=== PATIENT | male | born 1940 | race Hispanic/Latino ===

== ENCOUNTER → 2016-04-24 | Outpatient (CLI) | payer OTHER, MEDICARE ==
[2016-04-24 10:22] LABS: HEMATOCRIT 42.4 % (42.0-52.0); HEMOGLOBIN 14.2 g/dL (14.0-18.0); MEAN CORPUSCULAR HEMOGLOBIN 29.6 PG (27-31); MEAN CORPUSCULAR HGB CONC 33.5 g/dL (33-37); MEAN PLATELET VOLUME 9.8 FL (7.4-12.2); RED BLOOD COUNT 4.8 10^6/uL (4.70-6.10); WHITE BLOOD COUNT 8.69 10^3/uL (4.8-10.8)
[2016-04-24 10:44] LABS: BLOOD UREA NITROGEN 54 mg/dL (7-22); BUN/CREATININE RATIO 15.42 (6-20); CALCIUM 9.1 mg/dL (8.7-10.7); CHLORIDE 101 meq/L (98-112); CREATININE 3.5 mg/dL (0.70-1.50); GLUCOSE 216 mg/dL (78-110); PHOSPHORUS 4.4 mg/dl (2.4-4.3); POTASSIUM 4.2 meq/L (3.8-5.2); SODIUM 143 meq/L (135-145)
== END ==
LOC: LAB 09:59
PROVIDERS: ATTEND Physician Assistant Medical
DX: N18.5 Chronic kidney disease, stage 5 (principal); D63.1 Anemia in chronic kidney disease
CPT/HCPCS: 36415; 80069; 85027

== ENCOUNTER → 2016-05-23 | Outpatient (CLI) | payer OTHER, MEDICARE ==
[2016-05-23 09:41] LABS: HEMATOCRIT 40.2 % (42.0-52.0); HEMOGLOBIN 14.1 g/dL (14.0-18.0); MEAN CORPUSCULAR HEMOGLOBIN 30.2 PG (27-31); MEAN CORPUSCULAR HGB CONC 35.1 g/dL (33-37); RED BLOOD COUNT 4.67 10^6/uL (4.70-6.10); WHITE BLOOD COUNT 7.89 10^3/uL (4.8-10.8)
[2016-05-23 10:03] LABS: BLOOD UREA NITROGEN 74 mg/dL (7-22); CALCIUM 8.9 mg/dL (8.7-10.7); CHLORIDE 96 meq/L (98-112); CREATININE 4.3 mg/dL (0.70-1.50); GLUCOSE 249 mg/dL (78-110); PHOSPHORUS 4.1 mg/dl (2.4-4.3); POTASSIUM 3.2 meq/L (3.8-5.2); SODIUM 138 meq/L (135-145)
== END ==
LOC: LAB 09:15
PROVIDERS: ATTEND Internal Medicine Nephrology
DX: N18.5 Chronic kidney disease, stage 5 (principal); D63.1 Anemia in chronic kidney disease
CPT/HCPCS: 36415; 80069; 85027

== ENCOUNTER → 2016-05-31 | Outpatient (CLI) | payer OTHER, MEDICARE ==
[2016-05-31 11:19] LABS: BLOOD UREA NITROGEN 76 mg/dL (7-22); BUN/CREATININE RATIO 15.83 (6-20); CALCIUM 9.3 mg/dL (8.7-10.7); CHLORIDE 95 meq/L (98-112); CREATININE 4.8 mg/dL (0.70-1.50); GLUCOSE 142 mg/dL (78-110); PHOSPHORUS 5.5 mg/dl (2.4-4.3); POTASSIUM 3.7 meq/L (3.8-5.2); SODIUM 140 meq/L (135-145)
== END ==
LOC: LAB 10:38
PROVIDERS: ATTEND Internal Medicine Nephrology
DX: N18.4 Chronic kidney disease, stage 4 (severe) (principal)
CPT/HCPCS: 36415; 80069

== ENCOUNTER → 2016-06-07 | Outpatient (CLI) | payer OTHER, MEDICARE ==
[2016-06-07 10:11] LABS: HEMATOCRIT 43.8 % (42.0-52.0); HEMOGLOBIN 15.1 g/dL (14.0-18.0); MEAN CORPUSCULAR HEMOGLOBIN 29.4 PG (27-31); MEAN CORPUSCULAR HGB CONC 34.5 g/dL (33-37); RDW COEFFICIENT OF VARIATION 12.9 % (11.5-14.5); RED BLOOD COUNT 5.13 10^6/uL (4.70-6.10); WHITE BLOOD COUNT 8.47 10^3/uL (4.8-10.8)
[2016-06-07 10:23] LABS: BLOOD UREA NITROGEN 99 mg/dL (7-22); BUN/CREATININE RATIO 21.52 (6-20); CALCIUM 9.2 mg/dL (8.7-10.7); CHLORIDE 91 meq/L (98-112); CREATININE 4.6 mg/dL (0.70-1.50); GLUCOSE 251 mg/dL (78-110); PHOSPHORUS 5.7 mg/dl (2.4-4.3); POTASSIUM 3.4 meq/L (3.8-5.2); SODIUM 136 meq/L (135-145)
[2016-06-07 10:56] LABS: INTACT PARATHYROID HORMONE 247.5 PG/ML (7.5-53.5)
[2016-06-07 11:24] LABS: PERCENT IRON SATURATION 26.24 % (14-50)
== END ==
LOC: LAB 09:56
PROVIDERS: ATTEND Internal Medicine Nephrology
DX: I12.9 Hypertensive chronic kidney disease with stage 1 through stage 4 chronic kidney disease, or unspecified chronic kidney disease (principal); N18.4 Chronic kidney disease, stage 4 (severe); D63.1 Anemia in chronic kidney disease; N25.81 Secondary hyperparathyroidism of renal origin
CPT/HCPCS: 36415; 80069; 82306; 82565; 83540; 83550; 83970; 84156; 85027

== ENCOUNTER → 2016-06-12 | Outpatient (CLI) | payer OTHER, MEDICARE ==
[2016-06-12 11:07] LABS: BLOOD UREA NITROGEN 94 mg/dL (7-22); BUN/CREATININE RATIO 21.86 (6-20); CALCIUM 9.1 mg/dL (8.7-10.7); CHLORIDE 92 meq/L (98-112); CREATININE 4.3 mg/dL (0.70-1.50); GLUCOSE 244 mg/dL (78-110); PHOSPHORUS 4.6 mg/dl (2.4-4.3); POTASSIUM 3.4 meq/L (3.8-5.2); SODIUM 136 meq/L (135-145)
== END ==
LOC: LAB 09:57
PROVIDERS: ATTEND Internal Medicine Nephrology
DX: C61 Malignant neoplasm of prostate (principal); N18.4 Chronic kidney disease, stage 4 (severe)
CPT/HCPCS: 36415; 80069; 84153

== ENCOUNTER → 2016-06-14 | Outpatient (CLI) | payer OTHER, MEDICARE | LOC: MMPC 09:00 | DX: N18.3 Chronic kidney disease, stage 3 (moderate) (principal); E11.9 Type 2 diabetes mellitus without complications; I10 Essential (primary) hypertension; C61 Malignant neoplasm of prostate; E11.621 Type 2 diabetes mellitus with foot ulcer; Z79.4 Long term (current) use of insulin | CPT/HCPCS: 99213; G0463 ==

== ENCOUNTER → 2016-06-26 | Outpatient (CLI) | payer OTHER, MEDICARE ==
[2016-06-26 12:42] LABS: HEMOGLOBIN A1C 7.36 % (4.2-6.0)
[2016-06-26 12:52] LABS: BLOOD UREA NITROGEN 55 mg/dL (7-22); BUN/CREATININE RATIO 16.17 (6-20); CALCIUM 9.5 mg/dL (8.7-10.7); PHOSPHORUS 4.9 mg/dl (2.4-4.3); SERUM ALBUMIN 4.5 g/dL (3.5-4.8)
== END ==
LOC: LAB 12:04
PROVIDERS: ATTEND Internal Medicine Nephrology
DX: E11.9 Type 2 diabetes mellitus without complications (principal); Z79.4 Long term (current) use of insulin; N18.4 Chronic kidney disease, stage 4 (severe)
CPT/HCPCS: 36415; 80069; 83036

== ENCOUNTER → 2016-07-10 | Outpatient (CLI) | payer OTHER, MEDICARE ==
--- NOTE | 2016-07-10 11:22 | DI ---
PA /LATERAL CHEST X-RAY, 07/10/2016 10:46 AM : Clinical History: Cough. Previous Exam: 05/10/2015. On both views the patient took a very shallow inspiration. There is no acute soft tissue or bony abno rmality. Multiple old right-sided rib fractures are present. Heart size is probably normal for the sh allow inspiratory effort. Lungs are clear. Mediastinal structures are normal. There are no pulmonary nodules. Reading: Normal chest x-ray for this shallow inspiratory effort.
== END ==
LOC: MOB RAD 10:47
PROVIDERS: ATTEND Physician Assistant
DX: R05 Cough (principal)
CPT/HCPCS: 71020

== ENCOUNTER → 2016-08-24 | Outpatient (CLI) | payer OTHER, MEDICARE ==
[2016-08-24 12:11] LABS: BLOOD UREA NITROGEN 61 mg/dL (7-22); BUN/CREATININE RATIO 15.64 (6-20); CALCIUM 9.9 mg/dL (8.7-10.7)
== END ==
LOC: MOB LAB 09:59
DX: E11.9 Type 2 diabetes mellitus without complications (principal); Z79.4 Long term (current) use of insulin; E11.21 Type 2 diabetes mellitus with diabetic nephropathy; I12.9 Hypertensive chronic kidney disease with stage 1 through stage 4 chronic kidney disease, or unspecified chronic kidney disease; N18.3 Chronic kidney disease, stage 3 (moderate); F17.200 Nicotine dependence, unspecified, uncomplicated
CPT/HCPCS: 36415; 80048; 84100

== ENCOUNTER 2016-10-11 13:32 | Emergency (ER) | payer OTHER, MEDICARE ==
[2016-10-11] MEDS ORDERED: Sodium Chloride 0.9% 1,000 ML PRIMARY IV ONE (14:02)
[2016-10-11] MEDS ORDERED: ONDANSETRON 4 MG/2 ML VIAL IVP ONE (14:02)
[2016-10-11] MEDS ORDERED: KETOROLAC 15 MG/1 ML VIAL IVP ONE (14:02)
--- NOTE | 2016-10-11 14:10 | PDOC ---
Gen Adult / Medical Screen HPI - General Chief Complaint: Dyspnea Stated Complaint: ACUTE ONSET SHAKY CHILLS/SOB Date Seen by Provider: 10/11/16 Time Seen by Provider: 14:05 Source: POSITIVE: Patient, Spouse Exam Limitations: POSITIVE: No limitations Nurse's Notes Reviewed & Considered: Yes - Indicators Temperature Between 95 and 101 Degrees: Yes Respirations Between 12 and 20: Yes Blood Pressure Between 100-165 (sys) and 60-100 (shanks): Yes Pulse Range Between 60-105 (100 for age > 60 years): Yes Severe Pain (Greater than 5/10 Reported): No Chest or Abdominal Pain: No Inability to Walk: No Pt Reports Active High Risk Cond. (TB/Hepatitis/HIV/Chemo): No Abnormal Mental Status: No - History of Present Illness Initial Comments: This is a pleasant 76-year-old male who comes in with a chief complaint of chills, rigors, and low oxygen saturations. This patient was in his normal state of health this morning, with blood sugars around 215. He played golf trying to [address] the way home began to shake almost uncontrollably. When he arrived home Carla his stated that he could barely ambulate with difficulty standing. EMS arrived and found his oxygen saturations to be 84% on room air, it required 6 L to bring his oxygen saturations up above 90%. He has been seen a senior design engineering specialist in [facility] for diabetic wound ulcers on his left foot. Today that left foot has lymphangina present on the dorsum of his foot, increased swelling, and increased erythema. He has been running low- grade fevers at home. Body Location Affected: REPORTS: Lower Extremity (L) Timing: REPORTS: Gradual Duration: 1-3 hours Similar Symptoms Previously: No Recent Care Received: REPORTS: Treated by Any Prior Injuries Related to Current Complaint?: No - Patient Home Medications Home Medications: Home Medications Ventolin Hfa 2 puff INH Q4-6H 08/04/11 Blood-Glucose Meter [One Touch Ultra 2] 1 each MC QD #1 unit 10/11/12 Lancets [One Touch Lancets] 1 each MC QID #100 each 10/11/12 Aspirin [Low Dose Aspirin Ec] 1 tab PO DAILY tab 07/22/13 Cholecalciferol (Vitamin D3) [Vitamin D3] 1 cap PO QD #30 cap 09/07/15 Metoprolol Succinate 1 tab PO DAILY #90 tab 01/19/16 Insulin Aspart [Novolog Flexpen] 100 unit SUBCUT AC #5 unit 04/12/16 Insulin Glargine SoloStar Inj [Lantus Solostar Inj] 28 unit SQ QHS #1 box Tiotropium [place] [Spiriva] 1 cap IH QD #90 cap 06/14/16 Calcitriol [Rocaltrol] 1 cap PO QD #45 cap 06/19/16 Blood Sugar Diagnostic [Car Throttleuch Ultra Test Strips] 1 each IN QID #100 strip 02/16 Hydrocodone Bit/Acetaminophen [Retsof 5-325 Tablet] 1 tab PO Q6H PRN #90 tab [place], Insulin Disposable [Bd Ultra-Fine Pen Needle] 1 each MC QID #100 unit 09/05/16 Amlodipine Besylate [Norvasc] 10 mg PO DAILY 10/11/16 Atorvastatin Calcium [Lipitor] 10 mg PO DAILY 10/11/16 Furosemide [Lasix] 40 mg PO .AM.NOON 10/11/16 Hydralazine HCl 25 mg PO DAILY 10/11/16 [place]-3 Fatty Acids/Fish Oil [Fish Oil 1,000 Mg Capsule] 1 each PO DAILY - Patient Allergies Allergies/Adverse Reactions: Allergies Allergy/AdvReac Type Severity Reaction Status Date / Time No Known Drug Allergies Allergy NOT Verified 10/11/16 13:48 APPLICABLE Past Medical History - heen HEENT History: Cataracts Additional HEENT History: REMOVED Cardiovascular History: Hypertension, Hyperlipidemia Additional Cardiovasular History: CARDIAC STENTS, ON BLOOD THINNER Respiratory History: Other (please comment) Additional Respiratory History: FIBROSIS OF THE LUNG, PNEUMOCONIOSIS(THE BLACK LUNG), Gastrointestinal History: Gallbladder Disease Additional Gastrointestinal History: REMOVED Genitourinary History: Renal Failure Endocrine History: Type 2 Diabetes (insulin) Musculoskeletal History: Arthritis Prosthesis or Implant: No Additional Musculoskeletal History: CHRONIC PAINSTASIS ULCERS BILAT FOOT Neurological History: Denies History Blood Disorders: Denies History Psychiatric History: Denies History History of Sexually Transmitted Diseases: No Cancer History: Denies History History of MDRO: Unknown Other Type of MDRO: MSSA History of Other Communicable Diseases: No Alcohol Use: None Substance Use Type: None Previous Surgical History: Yes Type / Date of Surgery: APPENDECTOMY CATARACTS BILATERALLY /CHOLECYSTECTOMY Anesthesia Reactions: No Malignant Hyperthermia: No Significant Family History: Heart disease, Cancer, Diabetes, Hypertension Additional Family History: BROTHER CVA, HTN, CANCER OF THE LUNG AND COLON, DM AND HEART DISEASE ROS - Limitations ROS Limitations: No Limitations Constitution: REPORTS: Chills, Other (rigors) Cardiovascular: REPORTS: Denies Cardiac Symptoms Respiratory: REPORTS: Shortness Of Breath Neurological: REPORTS: Denies Neuro Symptoms Gastrointestinal: REPORTS: Denies GI Symptoms Endocrine: REPORTS: Elevated Glucose Musculoskeletal: REPORTS: Lower Extremity Swelling Genitourinary: REPORTS: Denies Symptoms Eyes: REPORTS: Denies Symptoms ENT: REPORTS: Denies Symptoms Skin: REPORTS: Other (Diabetic foot ulcer left foot) Lympathic: REPORTS: Denies Lympathic Symptoms Immunologic: POSITIVE: Denies Symptoms Psychiatric: POSITIVE: Denies Psych Symptoms Gen Adult/Medical Screen Exam - General Appearance General Appearance: POSITIVE: Alert, Cooperative, No Acute Distress, No Evidence of Trauma - HEENT HEENT: POSITIVE: Head Inspection Nml, Eyes Inspection Nml, Ears Inspection Nml, Nose Inspection Nml, Oral/Dental Inspect. Nml, Pharynx Inspect. Nml, PERRL, EOMI - Pupils Pupil Size: 4 mm: Bilateral - Neck Neck: POSITIVE: Normal Inspection, Thyroid Normal - Respiratory Respiratory: POSITIVE: No Respiratory Distress, Breath Sounds Normal, Chest Non- Tender - Cardiovascular Cardiovascular: POSITIVE: Regular Rate & Rhythm, No Murmur, No Gallop, PMI Normal - Abdomen Abdomen: Soft: (All Quadrants), Normal Bowel Sounds: (All Quadrants), Denies Tenderness: (All Quadrants), No Splenomegaly: (All Quadrants), No Hepatomegaly: (All Quadrants), No Guarding: (All Quadrants), No Rebound: (All Quadrants), No Palpable Pulse: (All Quadrants), No [place] Mass: (All Quadrants), No Distention: (All Quadrants), No Rigidity: (All Quadrants) - Back Back: POSITIVE: Normal Inspection - Neurological / Psychological Mental Status: POSITIVE: Mood Normal, Affect Normal Orientation: POSITIVE: Oriented x 3 - Skin Skin: POSITIVE: Warm, Dry, No Rash, Erythema (Left lower extremity), Lymphangitis (Left lower extremity), Decubitus (Left foot) - Extremities Extremity: Non-Tender: (All Extremities), Normal ROM: (All Extremities), Pelvis Stable: (All Extremities), Erythema: (LLE) Procedures - Laceration/Wound Repair Did patient have a laceration repair: No Gen Adlt/Medical Scrn Progress - Results Reviewed by me Xrays/CTs/US Reviewed by me: Yes Discussed with Radiologist: No Lab Results Reviewed: Yes Lab Results:: Laboratory Results 10/11/16 10/11/16 10/11/16 Range/Units 13:10 14:15 14:39 WBC 16.39 H (4.8-10.8) 10^3/uL RBC 4.89 (4.70-6.10) 10^6/uL Hgb 14.2 (14.0-18.0) g/dL Hct 42.7 (42.0-52.0) % MCV 87.3 (80-90) FL MCH 29.0 (27-31) PG MCHC 33.3 (33-37) g/dL RDW Std Deviation 42.6 (39-50) fL RDW Coeff of Tony 13.6 (11.5-14.5) % Plt Count 148 (140-350) 10*3/uL MPV 11.0 (7.4-12.2) FL Immature Gran % (Auto) 0.4 (0-5) % Neut % (Auto) 86.8 H (50-80) % Lymph % (Auto) 4.0 L (10-50) % [place] % (Auto) 8.2 (5-15) % Eos % (Auto) 0.4 (0-8) % Baso % (Auto) 0.2 (0-1) % Immature Gran # (Auto) 0.06 10*3/UL Neut # (Auto) 14.24 10*3/UL Lymph # (Auto) 0.65 10*3/uL [place] # (Auto) 1.34 H (0.3-0.8) 10*3/UL Eos # (Auto) 0.07 10*3/UL Baso # (Auto) 0.03 10*3/UL WBC Morphology Comment Normal morphology (NORM) Plt Morphology Comment Normal morphology (NORM) RBC Morph Comment Normal morphology (NORM) VBG pH (7.32-7.42) VBG pCO2 (45-55) mmHg VBG HCO3 (22-26) mmol/L VBG Base Excess (-2-2) MMOL/L Sodium 135 136 (135-145) meq/L Potassium 4.2 4.3 (3.8-5.2) meq/L Chloride 96 L 97 L (98-112) meq/L Carbon Dioxide 26 22 L (23-33) meq/L Anion Gap 13 17 (5-20) BUN 67 H 67 H (7-22) mg/dL Creatinine 4.2 H 4.2 H (0.70-1.50) mg/dL Estimated GFR Parquetry Layer Parquetry Layer BUN/Creatinine Ratio 15.95 15.95 (6-20) Glucose 132 H 126 H (78-110) mg/dL Mean Blood Glucose 142.771 mg/dL Hemoglobin A1c 6.87 H (4.2-6.0) % Calculated Osmolality 300.0 H 302.0 H (267-292) mOsm/kg Lactic Acid 0.9 (0.70-2.10) MMOL/L Calcium 9.0 9.0 (8.7-10.7) mg/dL Phosphorus 3.9 (2.4-4.3) mg/dl Magnesium 2.0 (1.6-2.4) mg/dL Total Bilirubin 1.0 (0.3-1.2) mg/dL AST 61 H (21-57) IU/L ALT 35 (21-72) IU/L Alkaline Phosphatase 90 (38-126) IU/L Troponin I 0.025 (< 0.040) ng/mL C-Reactive Protein 7.5 H 19.4 H (0.0-0.9) mg/dL NT-Pro-B Natriuret Pep 1710 H (0-125) PG/ML Total Protein 7.9 (6.1-8.0) g/dL Albumin 4.3 4.4 (3.5-4.8) g/dL Globulin 3.6 (2.50-4.10) g/dL Albumin/Globulin Ratio 1.10 L (1.3-2.0) mg/g TSH 1.40 (0.2700-4.2000) uIU/mL PTH Intact 75.7 (10.5-82) PG/ML Ur Collection Type Urine Color Urine Clarity (CLEAR) Urine pH (5.0-8.5) Ur Specific [place] (1.005-1.030) Urine Protein (NEG) mg/dl Urine Glucose (UA) (NEG) mg/dL Urine Ketones (NEG) Urine Occult Blood (NEG) Urine Nitrate (NEG) Urine Bilirubin (NEG) Urine Urobilinogen (0.2) EU/dL Ur Leukocyte Esterase (NEG) Urine RBC (NONE) /hpf Urine WBC (NONE) Ur Squamous Epith Cells (NONE) Ur Renal Epithelial Cell (NONE) Urine Crystals Urine Bacteria (NONE) Urine Casts (NONE) Urine Mucus (NONE) Urine Trichomonas (NONE) Urine Yeast (NONE) Ur Culture Indicated? 10/11/16 10/11/16 Range/Units 14:40 14:48 WBC (4.8-10.8) 10^3/uL RBC (4.70-6.10) 10^6/uL Hgb (14.0-18.0) g/dL Hct (42.0-52.0) % MCV (80-90) FL MCH (27-31) PG MCHC (33-37) g/dL RDW Std Deviation (39-50) fL RDW Coeff of Tony (11.5-14.5) % Plt Count (140-350) 10*3/uL MPV (7.4-12.2) FL Immature Gran % (Auto) (0-5) % Neut % (Auto) (50-80) % Lymph % (Auto) (10-50) % [place] % (Auto) (5-15) % Eos % (Auto) (0-8) % Baso % (Auto) (0-1) % Immature Gran # (Auto) 10*3/UL Neut # (Auto) 10*3/UL Lymph # (Auto) 10*3/uL [place] # (Auto) (0.3-0.8) 10*3/UL Eos # (Auto) 10*3/UL Baso # (Auto) 10*3/UL WBC Morphology Comment (NORM) Plt Morphology Comment (NORM) RBC Morph Comment (NORM) VBG pH 7.38 (7.32-7.42) VBG pCO2 39 L (45-55) mmHg VBG HCO3 23 (22-26) mmol/L VBG Base Excess -2 (-2-2) MMOL/L Sodium (135-145) meq/L Potassium (3.8-5.2) meq/L Chloride (98-112) meq/L Carbon Dioxide (23-33) meq/L Anion Gap (5-20) BUN (7-22) mg/dL Creatinine (0.70-1.50) mg/dL Estimated GFR BUN/Creatinine Ratio (6-20) Glucose (78-110) mg/dL Mean Blood Glucose mg/dL Hemoglobin A1c (4.2-6.0) % Calculated Osmolality (267-292) mOsm/kg Lactic Acid (0.70-2.10) MMOL/L Calcium (8.7-10.7) mg/dL Phosphorus (2.4-4.3) mg/dl Magnesium (1.6-2.4) mg/dL Total Bilirubin (0.3-1.2) mg/dL AST (21-57) IU/L ALT (21-72) IU/L Alkaline Phosphatase (38-126) IU/L Troponin I (< 0.040) ng/mL C-Reactive Protein (0.0-0.9) mg/dL NT-Pro-B Natriuret Pep (0-125) PG/ML Total Protein (6.1-8.0) g/dL Albumin (3.5-4.8) g/dL Globulin (2.50-4.10) g/dL Albumin/Globulin Ratio (1.3-2.0) mg/g TSH (0.2700-4.2000) uIU/mL PTH Intact (10.5-82) PG/ML Ur Collection Type Voided specimen Urine Color Yellow Urine Clarity Clear (CLEAR) Urine pH 5.0 (5.0-8.5) Ur Specific [place] 1.010 (1.005-1.030) Urine Protein 100 (NEG) mg/dl Urine Glucose (UA) 100 (NEG) mg/dL Urine Ketones Negative (NEG) Urine Occult Blood Negative (NEG) Urine Nitrate Negative (NEG) Urine Bilirubin Negative (NEG) Urine Urobilinogen 0.2 (0.2) EU/dL Ur Leukocyte Esterase Negative (NEG) Urine RBC 0-2 (NONE) /hpf Urine WBC 0-2 (NONE) Ur Squamous Epith Cells Few (NONE) Ur Renal Epithelial Cell None (NONE) Urine Crystals None Urine Bacteria None (NONE) Urine Casts Few (NONE) Urine Mucus Many (NONE) Urine Trichomonas None (NONE) Urine Yeast None (NONE) Ur Culture Indicated? Culture not set EKG Interpreted/Reviewed By Me:: Yes EKG Interpretation:: POSITIVE: Normal Sinus Rhythm - Patient's Progress Pain Medication Addressed: POSITIVE: Yes Re-Examine Time: 16:23 Status: POSITIVE: Improved MDM / ED Course: Patient was examined, an IV started, blood drawn and sent to the lab for studies , blood cultures were obtained, EKG and radiographic examinations were obtained. Findings CBC shows a white count elevated at 16.35, comprehensive metabolic panel shows renal failure with creatinine of 4.3 and an elevated BUNs in. CRP is elevated over 19. Troponin is normal. EKG shows sinus rhythm. CT results of lower extremities are pending. Urinalysis is unremarkable. Blood cultures are pending. Assessment: #1 renal failure with creatinine elevated to 4.3, it was 3.90 2 months ago. #2 diabetic foot ulcer with cellulitis and lymphangina. Plan: he will receive 2 g of IV Rocephin here in the emergency department. He is being transferred to [facility] to a higher level of care for involvement with renal and infectious disease doctors. - Consult Counseled: POSITIVE: Patient, Family, RE: Lab Results, RE: Radiology Results, RE : DX, RE: Need for F/U Patient Care Time - Estimated PCT Patient Care Time (In Minutes): 30 Vital Signs - Recent Vital Signs Vital Signs: Vital Signs (Last 8 hours) Temp Pulse Resp BP Pulse Ox 10/11/16 16:03 90 10/11/16 15:58 87 10/11/16 15:51 98.4 F 75 16 141/71 95 10/11/16 13:40 99.1 F 86 16 131/67 95 - VS Reviewed Vital Signs Reviewed: Yes Discharge Clinical Impression: Diabetic foot infection, Renal failure, Cellulitis and abscess of foot Discharge Disposition: Transferred to Tertiary Care Facility Condition: Stable Care Transferred To: [facility] Date Decision to Transfer to Another Facility: 10/11/16 Time Decision to Transfer to Another Facility: 16:30
[2016-10-11 14:11] LABS: BASOPHILS # (AUTO) 0.03 10*3/UL; BASOPHILS % (AUTO) 0.2 % (0-1); EOSINOPHILS # (AUTO) 0.07 10*3/UL; EOSINOPHILS % (AUTO) 0.4 % (0-8); HEMATOCRIT 42.7 % (42.0-52.0); HEMOGLOBIN 14.2 g/dL (14.0-18.0); LYMPHOCYTES # (AUTO) 0.65 10*3/uL; MEAN CORPUSCULAR HGB CONC 33.3 g/dL (33-37); MEAN CORPUSCULAR VOLUME 87.3 FL (80-90); MONOCYTES # (AUTO) 1.34 10*3/UL (0.3-0.8); MONOCYTES % (AUTO) 8.2 % (5-15); NEUTROPHILS # (AUTO) 14.24 10*3/UL; NEUTROPHILS % (AUTO) 86.8 % (50-80); RED BLOOD COUNT 4.89 10^6/uL (4.70-6.10)
[2016-10-11 14:12] LABS: PLATELET MORPHOLOGY COMMENT NORMAL MORPHOLOGY (NORM); RBC MORPHOLOGY COMMENT NORMAL MORPHOLOGY (NORM); WBC MORPHOLOGY COMMENT NORMAL MORPHOLOGY (NORM)
--- NOTE | 2016-10-11 14:13 | EKG ---
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
[2016-10-11 14:21] LABS: HEMOGLOBIN A1C 6.87 % (4.2-6.0)
[2016-10-11 14:28] LABS: BLOOD UREA NITROGEN 67 mg/dL (7-22); BUN/CREATININE RATIO 15.95 (6-20); C-REACTIVE PROTEIN 7.5 mg/dL (0.0-0.9); SERUM ALBUMIN 4.3 g/dL (3.5-4.8)
[2016-10-11 14:51] LABS: BLOOD UREA NITROGEN 67 mg/dL (7-22); BUN/CREATININE RATIO 15.95 (6-20); PHOSPHORUS 3.9 mg/dl (2.4-4.3); SERUM ALBUMIN 4.4 g/dL (3.5-4.8)
[2016-10-11 14:53] LABS: BILIRUBIN,URINE NEGATIVE (NEG); CLARITY,URINE CLEAR (CLEAR); COLOR,URINE YELLOW; GLUCOSE, URINE (UA) 100 mg/dL (NEG); NITRATE,URINE NEGATIVE (NEG); OCCULT BLOOD,URINE NEGATIVE (NEG); PROTEIN,URINE 100 mg/dl (NEG); UROBILINOGEN,URINE 0.2 EU/dL (0.2)
[2016-10-11 14:55] LABS: URINE SAMPLE TYPE VOIDED SPECIMEN
[2016-10-11 14:56] LABS: VENOUS PH 7.38 (7.32-7.42)
[2016-10-11 14:58] LABS: RBC,URINE 0-2 /hpf; SQUAMOUS EPITHELIAL CELL,UR FEW
[2016-10-11 14:59] LABS: URINE CASTS FEW; WBC,URINE 0-2
--- NOTE | 2016-10-11 16:12 | DI ---
CT SCAN OF THE FEET, 10/11/2016 2:53 PM : Clinical History: Left lower leg swelling with erythema. Scans are obtained from the mid tibias and fibulas to the toes without IV contrast. Sagittal and shauna nal reformatted images are also generated. There is atrophy of the lower leg muscles and the muscles of both feet. No soft tissue gas or abscess is noted in the lower legs or in the midfoot or hindfoot regions. There is an irregularity of the na il bed of the great toe of the left foot but I cannot determine if this represents an ulceration or m erely a deformity of the toenail. There is no periosteal new bone formation at this location. There h as been remodeling of the distal tibial articular surfaces and the dome of the talus on each side, wi th more "flattening" of the dome of the talus on the left side. There is a cyst of the left calcaneus at the level of the neck. No pathologic fracture is identified. Extensive vascular calcifications ar e noted in both feet in the lower legs. READIN. There is either a deformity in the toenail and nailbed of the great toe on the left side or this represents an ulceration. This can be determined by clinical evaluation. There is no evidence of corazon osteal new bone formation or of an obvious cortical defect to indicate osteomyelitis in this toe. 2. No evidence of osteomyelitis or of a soft tissue abscess is seen in either foot or lower leg. 3. There is extensive remodeling and arthritic change involving both talocalcaneal joints with evide nce of diffuse atrophy in the muscles bilaterally. Vascular calcifications are also noted.
--- NOTE | 2016-10-11 16:14 | DI ---
PA /LATERAL CHEST X-RAY, 10/11/2016 2:02 PM : Clinical History: Rigors. Previous Exam: 07/10/2016. On both views the patient took a very shallow inspiration. There is no acute soft tissue or bony abno rmality. Old right-sided rib fractures are present. Heart size is normal for the shallow inspiratory effort. Lungs are clear. Mediastinal structures are normal. There are no pulmonary nodules. Reading: Normal chest x-ray for this very shallow inspiratory effort. There has been no significant interval c hange.
[2016-10-11] MEDS ORDERED: cefTRIAXone Inj 2 GM in Sodium Chloride 0.9% 100 ML IV ONE (16:28)
[2016-10-11 17:29] VITALS: RESP 18; TEMP 98.2
== END 2016-10-11 17:24 | disposition short-term general hospital (02) ==
LOC: ER 13:32
DX: E11.621 Type 2 diabetes mellitus with foot ulcer (principal); L02.416 Cutaneous abscess of left lower limb; L03.116 Cellulitis of left lower limb; N19 Unspecified kidney failure; Z79.4 Long term (current) use of insulin; R50.9 Fever, unspecified; R06.02 Shortness of breath
CPT/HCPCS: 36415 ×2; 71020; 73700; 80053; 80069; 81001; 81003; 82803; 82948; 83036; 83605; 83735; 83880; 83970; 84443; 84484; 85025; 86140; 93005; 93010; 96361; 96365; 96375; 99285 ×2; J2405; 87040; J0696; J1885; J7050

== ENCOUNTER 2016-11-17 18:28 | Emergency (ER) | payer OTHER, MEDICARE ==
[2016-11-17 21:22] VITALS: RESP 18; TEMP 98.9
--- NOTE | 2016-11-18 04:18 | PDOC ---
Sore Throat/Dental Pain HPI - General Chief Complaint: Sore Throat Stated Complaint: fever, sore throat Date Seen by Provider: 11/17/16 Time Seen by Provider: 18:34 Source: POSITIVE: Patient Exam Limitations: POSITIVE: No limitations Nurse's Notes Reviewed & Considered: Yes - History of Present Illness Initial Comments: The patient is a 76-year-old male. He states that for the past day he's had a sore throat and he thinks he might of been running some low-grade fevers. He also complains of some sneezing and his eyes watering. Patient has a history of diabetes mellitus and was recently treated for a diabetic ulcer to his left foot. He is not presently on any antibiotics; he states he received his last antibiotic treatment for his abscess/ulcer left foot 2 weeks ago. He states this problem is resolving well. Patient denies any cough or ear pain. Location: Throat Timing: REPORTS: Gradual, Getting Worse Duration: >24 hours Severity: Moderate Quality: REPORTS: "Pain" Context: DENIES: Foreign Body, Ingestion, Fractured Tooth, Other Modifying Factors: worse with: Rest, Exertion, Coughing, OTC Cough Expectorant, OTC Cough Suppressant, Deep Breathing, Lying Flat, Heat, Cold, Other Associated Symptoms: REPORTS: Fever (Subjectively), Runny Nose, Congestion, Sore Throat. DENIES: Unable to Swallow, Chills, Toothache, Facial Pain, Earache , Swollen Jaw, Swollen Face, Jaw Pain, Cough, Swollen Glands Similar Symptoms Previously: No Recently seen/treated/hospitalized: No Any Prior Injuries Related to Current Complaint?: No - Patient Home Medications Home Medications: Home Medications Ventolin Hfa 2 puff INH Q4-6H 08/04/11 Blood-Glucose Meter [One Touch Ultra 2] 1 each MC QD #1 unit 10/11/12 Lancets [One Touch Lancets] 1 each MC QID #100 each 10/11/12 Aspirin [Low Dose Aspirin Ec] 1 tab PO DAILY tab 07/22/13 Cholecalciferol (Vitamin D3) [Vitamin D3] 1 cap PO QD #30 cap 09/07/15 Insulin Aspart [Novolog Flexpen] 100 unit SUBCUT AC #5 unit 04/12/16 Insulin Glargine SoloStar Inj [Lantus Solostar Inj] 28 unit SQ QHS #1 box Tiotropium [place] [Spiriva] 1 cap IH QD #90 cap 06/14/16 Calcitriol [Rocaltrol] 1 cap PO QD #45 cap 06/19/16 Blood Sugar Diagnostic [Onetouch Ultra Test Strips] 1 each IN QID #100 strip 02/16 Hydrocodone Bit/Acetaminophen [[place] 5-325 Tablet] 1 tab PO Q6H PRN #90 tab [place], Insulin Disposable [Bd Ultra-Fine Pen Needle] 1 each MC QID #100 unit 09/05/16 Amlodipine Besylate [Norvasc] 10 mg PO DAILY 10/11/16 Atorvastatin Calcium [Lipitor] 10 mg PO DAILY 10/11/16 Furosemide [Lasix] 40 mg PO .AM.NOON 10/11/16 Hydralazine HCl 25 mg PO DAILY 10/11/16 [place]-3 Fatty Acids/Fish Oil [Fish Oil 1,000 Mg Capsule] 1 each PO DAILY Metoprolol Succinate 1 tab PO DAILY #90 tab 10/27/16 Penicillin V Potassium 250 mg PO Q6H #40 tab 11/17/16 - Patient Allergies Allergies/Adverse Reactions: Allergies Allergy/AdvReac Type Severity Reaction Status Date / Time No Known Drug Allergies Allergy NOT Verified 11/17/16 18:52 APPLICABLE Past Medical History - heen HEENT History: Cataracts Additional HEENT History: REMOVED Cardiovascular History: Hypertension, Hyperlipidemia Additional Cardiovasular History: CARDIAC STENTS, ON BLOOD THINNER Respiratory History: Other (please comment) Additional Respiratory History: FIBROSIS OF THE LUNG, PNEUMOCONIOSIS(THE BLACK LUNG), Gastrointestinal History: Gallbladder Disease Additional Gastrointestinal History: REMOVED Genitourinary History: Renal Failure Endocrine History: Type 2 Diabetes (insulin) Musculoskeletal History: Arthritis Prosthesis or Implant: No Additional Musculoskeletal History: CHRONIC PAINSTASIS ULCERS BILAT FOOT Neurological History: Denies History Blood Disorders: Denies History Psychiatric History: Denies History History of Sexually Transmitted Diseases: No Male Reproductive History: Denies History Cancer History: Denies History Cancer Treatment / Date(s) of Treatment: RADIATION In Past Year Been Physically Harmed or Verbally Threatened: No History of MDRO: No Other Type of MDRO: MSSA History of Other Communicable Diseases: No Tobacco Use: Former Smoker Alcohol Use: None Substance Use Type: None Previous Surgical History: Yes Type / Date of Surgery: APPENDECTOMY CATARACTS BILATERALLY /CHOLECYSTECTOMY Anesthesia Reactions: No Malignant Hyperthermia: No Significant Family History: Heart disease, Cancer, Diabetes, Hypertension Additional Family History: BROTHER CVA, HTN, CANCER OF THE LUNG AND COLON, DM AND HEART DISEASE Past Medical History Reviewed: Reviewed - No Changes ROS - Limitations ROS Limitations: No Limitations Constitution: REPORTS: Denies Symptoms Cardiovascular: REPORTS: Denies Cardiac Symptoms Respiratory: REPORTS: Denies Resp Symptoms Neurological: REPORTS: Denies Neuro Symptoms Gastrointestinal: REPORTS: Denies GI Symptoms Endocrine: REPORTS: Denies Symptoms Musculoskeletal: REPORTS: Denies MS Symptoms Genitourinary: REPORTS: Denies Symptoms Eyes: REPORTS: Itching Eyes ("Eyes watering ") ENT: REPORTS: Sore Throat, Other ("Sneezing") Skin: REPORTS: Denies Skin Symptoms Lympathic: REPORTS: Denies Lympathic Symptoms Immunologic: POSITIVE: Denies Symptoms Psychiatric: POSITIVE: Denies Psych Symptoms Sore Throat/Dental Pain Exam - General Appearance General Appearance: REPORTS: Alert, Cooperative, No Acute Distress, No Evidence of Trauma - HEENT Head / Face: POSITIVE: Atraumatic, Normal Inspection, No Facial Swelling Eyes: POSITIVE: Inspection Normal, PERRL, EOM's Intact, Eyelids Uninjured, Conjunctivae Uninjured, No Nystagmus, No Globe Trauma, Sclera Normal, Normal Corneal Inspection Ears: POSITIVE: Ears Normal Inspection, TM Normal Inspection, Auricle Normal, External Canal Normal Nose: POSITIVE: Inspection Normal, No Apparent Trauma, Nares Normal, No CSF Leak , Other (Mild nasal congestion) Oropharynx: POSITIVE: External Inspection Nml, Airway Intact, Voice Normal, Moist Mucous Membranes, No Oral Injury, Lips Normal, Gums Normal, No Drooling, No Thrush, Normal Gag Reflex, Pharyngeal Erythema. NEGATIVE: Pharynx Inspect. Nml Neck: POSITIVE: Supple, Normal Inspection, Non Tender Dental: POSITIVE: No Dental Injury - Respiratory Respiratory: REPORTS: No Respiratory Distress, Breath Sounds Normal, No Pleuritic Chest Pain, Speaks Full Sentences, No Pain on Inspiration - Cardiovascular Cardiovascular: REPORTS: Regular Rate and Rhythm, Heart Sounds Normal, Equal Pulses, Strong Pulses Peripheral Pulses: Radial (R): 2+, Radial (L): 2+ - Extremities Extremity: Non-Tender: (All Extremities), Normal ROM: (All Extremities), Normal Inspection: (All Extremities) - Skin Skin: REPORTS: Intact, Normal For Race, Warm, Dry, No Rash - Neurological / Psychological Neurological: POSITIVE: Affect Apporpriate, Oriented X3, 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, Motor Normal, Sensation Normal Images - Dental Dental: 1 - Pharyngeal erythema Sore Throat/Dental Progress - Results Reviewed by me Lab Results Reviewed: Yes (rapid strep screen positive) - Patient's Progress Pain Medication Addressed: POSITIVE: Yes (Recommended Advil or Tylenol) School/Work Release Addressed: POSITIVE: Not Applicable Re-Examine Time:: 19:00 Status: POSITIVE: Unchanged - Consult Counseled: POSITIVE: Patient, RE: Lab Results, RE: DX, RE: Need for F/U Patient Care Time - Estimated PCT Patient Care Time (In Minutes): 24 Vital Signs - VS Reviewed Vital Signs Reviewed: Yes Discharge Clinical Impression: Streptococcal sore throat Discharge Disposition: Discharged to Home Condition: Stable Prescriptions / Orders: Penicillin V Potassium 250 mg PO Q6H #40 tab Patient Instructions Given at Discharge: Strep Throat (ED), Allergic Rhinitis ( ED) Additional Instructions: Your test for strep throat was positive. Please take penicillin, one every 6 hours for 10 days. I think your also having some environmental allergies. Try taking Zyrtec or Claritin, one daily. Follow-up with your primary care provider. Return here anytime if condition worsens in any way whatsoever. Follow Up With: CONRAD JIMENEZ [Primary Care Provider] - (Follow-up with your primary care provider. Return here anytime if condition worsens in any way whatsoever. Instructions as above. Follow-up with your primary care provider. Return here anytime as necessary.)
== END 2016-11-17 19:19 | disposition home or self-care (01) ==
LOC: ER 18:28
DX: J02.0 Streptococcal pharyngitis (principal); R50.9 Fever, unspecified; E11.621 Type 2 diabetes mellitus with foot ulcer; L97.521 Non-pressure chronic ulcer of other part of left foot limited to breakdown of skin; Z79.4 Long term (current) use of insulin
CPT/HCPCS: 87802; 99282

== ENCOUNTER 2019-01-01 14:10 | Inpatient (IN) ==
[2019-01-01] MEDS ORDERED: ACETAMINOPHEN 325 MG TABLET PO PRN (14:22)
[2019-01-01] MEDS ORDERED: ONDANSETRON 4 MG/2 ML VIAL IVP PRN (14:22)
[2019-01-01] MEDS ORDERED: DOCUSATE 100 MG CAPSULE PO PRN (14:22)
[2019-01-01] MEDS ORDERED: LIDOCAINE W/ SODIUM BICARB 0.5 ML SYR SUBD PRN (14:22)
[2019-01-01] MEDS: HYDROcodone-APAP 5 MG -325 MG TABLET PO PRN (16:44)
[2019-01-01] MEDS ORDERED: ATORVASTATIN 10 MG TABLET PO SCH (21:00)
[2019-01-01] MEDS ORDERED: Insulin Glargine SoloStar Inj 100 UNIT/ML INSULN.PEN SUBCUT SCH (21:00)
[2019-01-01] MEDS: CHOLECALCIFEROL 1000 IU TABLET PO SCH (21:01)
[2019-01-01 21:21] LABS: BILIRUBIN,URINE NEGATIVE (NEG); CLARITY,URINE Slightly Cloudy (CLEAR); COLOR,URINE YELLOW (Y); GLUCOSE, URINE (UA) 250 mg/dL (NEG); OCCULT BLOOD,URINE SMALL (NEG); PROTEIN,URINE 100 mg/dl (NEG); UROBILINOGEN,URINE 0.2 EU/dL (0.2)
[2019-01-01 21:24] LABS: URINE SAMPLE TYPE VOIDED SPECIMEN
[2019-01-01 21:27] LABS: BACTERIA,URINE RARE; WBC,URINE 0-2
[2019-01-01 21:28] LABS: URINE CASTS MODERATE
[2019-01-01 22:34] LABS: APPEARANCE, CSF CLEAR (CLEAR); COLOR, CSF COLORLESS (COLOR)
[2019-01-02] MEDS: HYDROcodone-APAP 5 MG -325 MG TABLET PO PRN ×2 (00:07→09:15)
[2019-01-02 05:34] LABS: BASOPHILS # (AUTO) 0.01 10*3/UL; BASOPHILS % (AUTO) 0.1 % (0-1); EOSINOPHILS # (AUTO) 0.02 10*3/UL; EOSINOPHILS % (AUTO) 0.2 % (0-8); Hematocrit [HCT] 30.7 % (42.0-52.0); Hemoglobin [HGB] 9.7 g/dL (14.0-18.0); LYMPHOCYTES # (AUTO) 0.46 10*3/uL; MEAN CORPUSCULAR HGB CONC 31.6 g/dL (33-37); MEAN CORPUSCULAR VOLUME 90.6 FL (80-90); MEAN PLATELET VOLUME 9.7 FL (7.4-12.2); MONOCYTES # (AUTO) 1.39 10*3/UL (0.3-0.8); MONOCYTES % (AUTO) 11.8 % (5-15); NEUTROPHILS # (AUTO) 9.87 10*3/UL; NEUTROPHILS % (AUTO) 83.7 % (50-80); RED BLOOD COUNT 3.39 10^6/uL (4.70-6.10)
[2019-01-02 05:49] LABS: PLATELET MORPHOLOGY COMMENT NORMAL MORPHOLOGY (NORM); RBC MORPHOLOGY COMMENT NORMAL MORPHOLOGY (NORM); WBC MORPHOLOGY COMMENT NORMAL MORPHOLOGY (NORM)
[2019-01-02 05:50] LABS: BUN/CREATININE RATIO 15.2 (6-20); SERUM ALBUMIN 3.4 g/dL (3.5-4.8)
[2019-01-02] MEDS ORDERED: TAMSULOSIN 0.4 MG CAPSULE PO SCH (07:00)
[2019-01-02] MEDS ORDERED: TIOTROPIUM BROMIDE 18 MCG CAPSULE INH SCH (07:00)
[2019-01-02] MEDS ORDERED: FUROSEMIDE 40 MG TABLET PO SCH (07:00)
[2019-01-02] MEDS ORDERED: OMEPRAZOLE 20 MG CAPSULE PO SCH (09:00)
[2019-01-02] MEDS ORDERED: HYDRALAZINE 10 MG TABLET PO SCH (09:00)
[2019-01-02] MEDS ORDERED: METOPROLOL SUCCINATE 50 MG SR 24H TABLET PO SCH (09:00)
[2019-01-02] MEDS ORDERED: CALCITRIOL 0.25 MCG CAPSULE PO SCH (09:00)
[2019-01-02] MEDS ORDERED: ASPIRIN EC 81 MG TABLET PO SCH (09:00)
[2019-01-02] MEDS: CHOLECALCIFEROL 1000 IU TABLET PO SCH (09:15)
[2019-01-02 13:08] VITALS: BP 135/57; RESP 18; TEMP 98.6; O2SAT 97
== END 2019-01-02 13:25 | disposition home or self-care (01) | DRG 868 ==
LOC: MED/SURG 14:22
PROVIDERS: ADMIT Family Medicine; ATTEND Family Medicine